=== PATIENT | male | born 1935 | race Caucasian/White ===

== ENCOUNTER → 2017-03-12 | Outpatient (CLI) | payer OTHER ==
[~2017-03-12] MED LIST: ACC10 PO; ACET-1256 PO; FINA5TAB PO; GATI0.5S OPR; LATA0.009 OPB; METO25TA56 PO; MULT-506 PO; PRED1SUS3 OPL; PRED1SUS3 OPR; PRLSR20 PO; WARF5TAB7 PO; WARF5TAB90 PO
[2017-03-12 12:27] LABS: AST/SGOT 20 U/L (15-37); BLOOD UREA NITROGEN 21 mg/dl (7-18); BUN/CREATININE RATIO 21.5 (10-20); CARBON DIOXIDE 28 mmol/L (21-32); CHLORIDE 107 mmol/L (98-107); CHOLESTEROL 162 mg/dl (0-200); CREATININE 0.97 mg/dl (0.60-1.40); GLUCOSE 97 mg/dl (70-99); POTASSIUM 3.8 mmol/L (3.5-5.1); SODIUM 142 mmol/L (136-145)
[2017-03-12 12:29] LABS: ESTIMATED AVERAGE GLUCOSE 120 mg/dl; HA1C FLAG Normal (Normal)
[2017-03-12 12:31] LABS: ALT/SGPT 21 U/L (12-78); CHOLESTEROL/HDL RATIO 3.4; FERRITIN 349.5 ng/ml (8.0-388.0); HDL CHOLESTEROL 48 mg/dl; LDL CHOLESTEROL CALCULATED 72 mg/dl; TRIGLYCERIDES 212 mg/dl (0-150); VERY LOW DENSITY LIPOPROT CALC 42 mg/dl
[2017-03-12 13:20] LABS: CALCIUM 8.9 mg/dl (8.5-10.1)
[2017-03-12 13:57] LABS: BASO % 0.4 %; BASO ABS # 0.02 K/uL (0-0.2); COMPLETE YES; EOS % 3.7 %; HEMATOCRIT 43.1 % (42-52); IG% 1.2 %; LYMPH % 23.6 %; LYMPH ABS # 1.15 K/uL (1.2-3.4); MEAN CELL VOLUME 90.9 fL (80-100); MEAN CORPUSCULAR HEMOGLOBIN 30.6 pg (25-34); MEAN CORPUSCULAR HGB CONC 33.6 g/dl (32-36); MEAN PLATELET VOLUME 10.8 fL (7.4-10.4); MONO % 11.5 %; NEUT % 59.6 %; PLATELET COUNT 122 K/uL (130-400); PLT ESTIMATE DECREASED; RED BLOOD COUNT 4.74 M/uL (4.7-6.1); WHITE BLOOD COUNT 4.87 K/uL (4.8-10.8)
== END | disposition home or self-care (01) ==
LOC: C.LAB1850 10:48
PROVIDERS: ATTEND Internal Medicine
DX: R73.9 Hyperglycemia, unspecified (principal); D69.6 Thrombocytopenia, unspecified; E78.5 Hyperlipidemia, unspecified

== ENCOUNTER → 2017-09-24 | Outpatient (CLI) | payer OTHER ==
[2017-09-24 09:27] LABS: BASO % 0.2 %; BASO ABS # 0.01 K/uL (0-0.2); COMPLETE YES; HEMATOCRIT 42.3 % (42-52); IG% 0.2 %; LYMPH % 26.2 %; LYMPH ABS # 1.25 K/uL (1.2-3.4); MEAN CELL VOLUME 92.2 fL (80-100); MEAN CORPUSCULAR HEMOGLOBIN 30.9 pg (25-34); MEAN CORPUSCULAR HGB CONC 33.6 g/dl (32-36); MEAN PLATELET VOLUME 10.7 fL (7.4-10.4); MONO % 12.4 %; PLATELET COUNT 104 K/uL (130-400); RED BLOOD COUNT 4.59 M/uL (4.7-6.1); WHITE BLOOD COUNT 4.77 K/uL (4.8-10.8)
[2017-09-24 09:55] LABS: ALT/SGPT 24 U/L (12-78); BLOOD UREA NITROGEN 24 mg/dl (7-18); BUN/CREATININE RATIO 21.2 (10-20); CALCIUM 8.7 mg/dl (8.5-10.1); CARBON DIOXIDE 27 mmol/L (21-32); CHLORIDE 107 mmol/L (98-107); CHOLESTEROL 66 mg/dl (0-200); CREATININE 1.15 mg/dl (0.60-1.40); GLUCOSE 98 mg/dl (70-99); POTASSIUM 3.7 mmol/L (3.5-5.1); SODIUM 141 mmol/L (136-145); TRIGLYCERIDES 94 mg/dl (0-150); VERY LOW DENSITY LIPOPROT CALC 19 mg/dl
[2017-09-24 10:05] LABS: AST/SGOT 21 U/L (15-37); CHOLESTEROL/HDL RATIO 1.3; HDL CHOLESTEROL 50 mg/dl
== END | disposition home or self-care (01) ==
LOC: C.LAB1850 08:31
PROVIDERS: ATTEND Internal Medicine
DX: E78.5 Hyperlipidemia, unspecified (principal); D69.6 Thrombocytopenia, unspecified; I51.7 Cardiomegaly

== ENCOUNTER → 2018-01-08 | Outpatient (CLI) | payer OTHER | END | disposition home or self-care (01) | LOC: C.PATHSPEC 17:20 | PROVIDERS: ATTEND Urology | DX: R36.9 Urethral discharge, unspecified (principal) ==

== ENCOUNTER → 2018-03-07 | Outpatient (CLI) | payer OTHER ==
[2018-03-07 09:54] LABS: HEMOGLOBIN A1C 5.8 % (4.5-5.6)
[2018-03-07 10:02] LABS: HEMATOCRIT 40.5 % (42-52); HEMOGLOBIN 13.7 g/dL (14.0-18.0); MEAN CELL VOLUME 89.6 fL (80-100); MEAN CORPUSCULAR HEMOGLOBIN 30.3 pg (25-34); MEAN CORPUSCULAR HGB CONC 33.8 g/dl (32-36); MEAN PLATELET VOLUME 9.5 fL (7.4-10.4); PLATELET COUNT 117 K/uL (130-400); RED CELL DISTRIBUTION WIDTH CV 15.9 % (11.5-14.5); RED CELL DISTRIBUTION WIDTH SD 51.8 fL (36.4-46.3); WHITE BLOOD COUNT 4.51 K/uL (4.8-10.8)
[2018-03-07 10:04] LABS: ALT/SGPT 21 U/L (12-78); AST/SGOT 20 U/L (15-37); BLOOD UREA NITROGEN 24 mg/dl (7-18); CALCIUM 8.3 mg/dl (8.5-10.1); CARBON DIOXIDE 26 mmol/L (21-32); CREATININE 1.07 mg/dl (0.60-1.40); GLUCOSE 91 mg/dl (70-99); POTASSIUM 3.8 mmol/L (3.5-5.1); SODIUM 143 mmol/L (136-145)
[2018-03-07 10:06] LABS: CHOLESTEROL 140 mg/dl (0-200); LDL CHOLESTEROL CALCULATED 76 mg/dl
== END | disposition home or self-care (01) ==
LOC: C.LAB1850 08:06
PROVIDERS: ATTEND Internal Medicine
DX: E78.5 Hyperlipidemia, unspecified (principal); R73.9 Hyperglycemia, unspecified; I48.2 Chronic atrial fibrillation

== ENCOUNTER 2021-07-01 09:06 | Observation (INO) ==
--- NOTE | 2021-05-27 14:30 | PAT Medication Instructions ---
Medication Instructions Date of Service May 27, 2021 Home Medications Medication Instructions Recorded quinapril 40 mg tablet 40 mg PO DAILY #90 tab 08/26/20 metoprolol succinate 25 mg 25 mg PO BID #180 tab 09/29/20 tablet,extended release 24 hr potassium chloride 10 mEq 10 meq PO DAILY #90 tab 10/18/20 tablet,extended release furosemide 20 mg tablet 20 mg PO DAILY #90 tab 11/23/20 apixaban 5 mg tablet 5 mg PO BID #60 tab 03/16/21 finasteride 5 mg tablet 5 mg PO DAILY #90 tab 04/05/21 omeprazole 20 mg capsule,delayed 20 mg PO DAILY #90 cap 04/18/21 release cholecalciferol (vitamin D3) 250 mcg (10,000 unit) tablet 10,000 units PO QAM latanoprost 0.005 % eye drops 1 drops OPB HS multivitamin 2 cap PO QAM quinapril 40 mg tablet 40 mg PO DAILY metoprolol succinate 25 mg tablet,extended release 24 hr 25 mg PO BID potassium chloride 10 mEq tablet,extended release 10 meq PO DAILY furosemide 20 mg tablet 20 mg PO DAILY apixaban 5 mg tablet 5 mg PO BID finasteride 5 mg tablet 5 mg PO DAILY omeprazole 20 mg capsule,delayed release 20 mg PO DAILY vit C 250 mg-vit E 90 mg-zinc 40 mg-copper 1 tl-ksdxgg-mehipk capsule (PreserVision AREDS-2) 1 tab PO BID ASK your prescriber and surgeon apixaban 5 mg tablet 5 mg PO BID (in order for spinal anesthesia, Apixaban needs to be stopped 72 hours/3 days before surgery. Please check if okay with doctor that prescribes this to you) STOP taking 2 weeks before surgery (or as soon as possible if surgery is within 2 weeks) vit C 250 mg-vit E 90 mg-zinc 40 mg-copper 1 ol-ccawbv-jckkef capsule (PreserVision AREDS-2) 1 tab PO BID DO NOT take the morning of surgery cholecalciferol (vitamin D3) 250 mcg (10,000 unit) tablet 10,000 units PO QAM multivitamin 2 cap PO QAM quinapril 40 mg tablet 40 mg PO DAILY potassium chloride 10 mEq tablet,extended release 10 meq PO DAILY furosemide 20 mg tablet 20 mg PO DAILY Take morning of surgery With a small sip of water, OTHERWISE NOTHING TO EAT OR DRINK AFTER MIDNIGHT: metoprolol succinate 25 mg tablet,extended release 24 hr 25 mg PO BID finasteride 5 mg tablet 5 mg PO DAILY omeprazole 20 mg capsule,delayed release 20 mg PO DAILY Take evening before surgery latanoprost 0.005 % eye drops 1 drops OPB HS metoprolol succinate 25 mg tablet,extended release 24 hr 25 mg PO BID Other Notes If you have any questions please call us at [phone] or [phone] or [phone] or [phone]
--- NOTE | 2021-05-31 14:21 | Anesthesiology Consultation ---
Date of Service May 31, 2021 Assessment & Plan (1) Encounter for pre-operative examination: - COVID screening: Per assessment on 05/31: Travel screen negative, no known COVID-19 positive contacts or current COVID-19 related symptoms. Patient vaccinated. Surgeon arranging preop COVID testing. Awaiting results. - Cardiology office visit (04/12/21): "At this time the patient is an acceptable cardiac risk to undergo his right knee total arthroplasty s scheduled to be performed May 31, 2021.. At this time continue current medications. If his blood pressure remains elevated despite control of his knee pain would then need to consider increasing his antihypertensive regimen. At this time continue current MARVIN-inhibitor and beta-matt dose.. Continue long-term anticoagulation therapy with apixaban. At the time of his surgery would recommend holding it for no more than 2 days prior to the day of surgery. (last dose day 3 prior to surgery. Hold day 2 and day 1 before surgery. Hold day of surgery. Resume 24 hours after surgery if okay from a bleeding and orthopedic standpoint.. Routine cardiology follow-up visit with me in 6 months." - Apixaban instructions: Per 04/12/21 office visit, cardiology does not recommend patient holding for longer than 2 days prior to DOS (per pt, d/t hx of DVT when off anticoagulation in the past). Moth Proofer made aware that in order for spinal anesthesia, Eliquis needs to be held 72 hours prior to surgery. He is in agreement with plan for spinal anesthesia and okay with patient holding 72 hours prior to surgery given this information. His office aware to contact patient to make him aware. Chart Review Chart Review: Acceptable Risk for Surgery and Patient seen in Pre Admission Testing Teaching & Discussion Pre-Anesthesia Teaching/Discussion Notes: Instructed NPO after midnight before surgery,except medications with 15 cc of water. Medication instructions provided according to the PAT guidelines. History Surgery Operation Date: 07/01/21 08:40 Proposed Procedures p Right Total Knee Arthroplasty - Randolph Burgos DO Height/Weight Height: 6 ft Weight: 96.3 kg Allergies Allergy/AdvReac Type Severity Reaction Status Date / Time codeine AdvReac Mild Nausea Verified 05/31/21 14:11 Medications Home Medications Medication Instructions Recorded Confirmed Last Taken cholecalciferol (vitamin D3) 250 10,000 units PO QAM #30 tab 07/15/19 05/31/21 Unknown mcg (10,000 unit) tablet latanoprost 0.005 % eye drops 1 drops OPB HS ml 07/15/19 05/31/21 Unknown multivitamin 2 cap PO QAM 07/15/19 05/31/21 Unknown quinapril 40 mg tablet 40 mg PO DAILY #90 tab 08/26/20 05/31/21 Unknown metoprolol succinate 25 mg 25 mg PO BID #180 tab 09/29/20 05/31/21 Unknown tablet,extended release 24 hr potassium chloride 10 mEq 10 meq PO DAILY #90 tab 10/18/20 05/31/21 Unknown tablet,extended release furosemide 20 mg tablet 20 mg PO DAILY #90 tab 11/23/20 05/31/21 Unknown apixaban 5 mg tablet 5 mg PO BID #60 tab 03/16/21 05/31/21 Unknown finasteride 5 mg tablet 5 mg PO DAILY #90 tab 04/05/21 05/31/21 Unknown omeprazole 20 mg capsule,delayed 20 mg PO DAILY #90 cap 04/18/21 05/31/21 Unkno wn release vit C 250 mg-vit E 90 mg-zinc 40 1 tab PO BID 05/24/21 05/31/21 Unknown mg-copper 1 zl-cxnxgz-tqnsqk capsule (PreserVision AREDS-2) Past Medical History Medical History Arthritis BPH with obstruction/lower urinary tract symptoms Congestive heart failure COPD (chronic obstructive pulmonary disease) Deep vein thrombosis Initial DVT (unknown etiology), subsequent DVT (3+ years ago) occurred while anticoagulation was on hold GERD (gastroesophageal reflux disease) Glaucoma Hearing deficit History of kidney stones Hx of skin cancer, basal cell Ear Hypertension Meningitis spinal Remote hx (childhood) Permanent atrial fibrillation Follows with Dr. Joseph Transient diplopia Exercise / Class Metabolic Activity III < 4 Walking/Shop/Light housework Past Family History Family History Father AAA (abdominal aortic aneurysm) Mother Congestive heart failure Myocardial infarction Hypertension Coronary arteriosclerosis Other No family history of adverse response to anesthesia Denies family history of Ovarian cancer Prostate cancer Breast cancer Colorectal cancer Past Surgical History Surgical History History of colonoscopy History of tooth extraction Past Anesthesia History No Hx of Anesthesia Complications and No Family Hx of Anesthesia Complications History of PONV No Hx of PONV Social History Smoking Status: Former smoker tobacco type: cigarettes Do You Dip or Chew Tobacco: No Smoking End Date: Quit 1984 Hx Alcohol Use: No Hx Substance Use: No substance use type: does not use Review of Systems Patient denies chest pain, shortness of breath, fever, chills, cough, wheezing, palpitations. Physical Exam Vital Signs VITALS BP P TEMP SP02 RESP PHYSICAL Full cervical extension range of motion. Full TMJ range of motion. TMD __ finger breaths Mallampati Score ___ Dentition: full upper/lower dentures Lungs: clear throughout to auscultation Cardiac: regular rate, irregular rhythm, no murmurs noted Spine: normal Carotid arteries: negative bruit Extremities: no edema Lab Results Anesthesia Preop Results Results Anesthesia Widget: WBC 4.79 K/uL (4.8-10.8) L 05/31/21 Hgb 13.7 g/dL (14.0-18.0) L 05/31/21 Hct 41.4 % (42-52) L 05/31/21 Plt 148 K/uL (130-400) 05/31/21 Na 136 mmol/L (136-145) 05/31/21 K 4.6 mmol/L (3.5-5.1) 05/31/21 Cl 107 mmol/L (98-107) 05/31/21 CO2 27 mmol/L (21-32) 05/31/21 BUN 24 mg/dl (7-18) H 05/31/21 Creat 1.27 mg/dl (0.6-1.4) 05/31/21 Glucose Level 117 mg/dl (70-99) H 05/31/21 PT 10.2 Seconds (9.0-12.0) 05/31/21 PTT 30.2 Seconds (21.0-31.0) 05/31/21 INR 1.0 (0.9-1.1) 05/31/21 Blood Type O Positive 05/31/21 Antibody Screen NEGATIVE 05/31/21 Testing Electrocardiogram Date: 05/31/21 A. fib with PVCs or aberrantly conducted complexes. Nonspecific ST abnormality. Unconfirmed report. Chest X-Ray Date: 05/31/21 FINDINGS: Lung volumes are normal. There is no pneumothorax or pleural effusion. There is no consolidation or evidence for pulmonary edema. Moderate cardiomegaly is again noted as well as a hiatal hernia. Mediastinal contours are stable. IMPRESSION: No acute cardiopulmonary findings. No change in appearance of the chest. Cardiomegaly. Hiatal hernia. Echocardiogram Date: 10/13/19 EF 40%. Mild to moderate global HK. Mild cLVH. Borderline mild biatrial dilatation. Borderline RVE. Trace to mild TR. RVSP 30-40mmhg.
--- NOTE | 2021-06-30 16:50 | History & Physical Report ---
Date of Service June 30, 2021 Assessment & Plan (1) Right knee DJD: We will proceed with a right total knee arthroplasty. Postoperatively he will be kept in the hospital for postoperative medical management. He will be started on Eliquis for DVT prophylaxis. He plans [facility] upon discharge. History of Present Illness Chief Complaint: Osteoarthritis of the right knee. Primary Care Provider: Saleem Azar MD Ron is a pleasant 86-year-old male whose been dealing with chronic worsening right knee pain. He has had bad valgus deformity and his knee keeps giving out on him. He is ambulating with a cane. He has a history of a right knee arthroscopy done in the . He does have a history of a right lower extr emity DVT and has been on Eliquis for that. After failing extensive conservative treatment, he has elected proceed with a right total knee arthroplasty.. Allergies Allergy/AdvReac Type Severity Reaction Status Date / Time codeine AdvReac Mild Nausea Verified 06/24/21 10:39 Home Medications Medication Instructions Recorded Confirmed Type cholecalciferol (vitamin D3) 250 10,000 units PO QAM #30 tab 07/15/19 06/24/21 History mcg (10,000 unit) tablet latanoprost 0.005 % eye drops 1 drops OPB HS ml 07/15/19 06/24/21 History multivitamin 2 cap PO QAM 07/15/19 06/24/21 History quinapril 40 mg tablet 40 mg PO DAILY #90 tab 08/26/20 06/24/21 Rx metoprolol succinate 25 mg 25 mg PO BID #180 tab 09/29/20 06/24/21 Rx tablet,extended release 24 hr potassium chloride 10 mEq 10 meq PO DAILY #90 tab 10/18/20 06/24/21 Rx tablet,extended release furosemide 20 mg tablet 20 mg PO DAILY #90 tab 11/23/20 06/24/21 Rx apixaban 5 mg tablet 5 mg PO BID #60 tab 03/16/21 06/24/21 Rx finasteride 5 mg tablet 5 mg PO DAILY #90 tab 04/05/21 06/24/21 Rx omeprazole 20 mg capsule,delayed 20 mg PO DAILY #90 cap 04/18/21 06/24/21 Rx release vit C 250 mg-vit E 90 mg-zinc 40 1 tab PO BID 05/24/21 06/24/21 History mg-copper 1 br-zgeoto-rphxin capsule (PreserVision AREDS-2) Past Med/Surg History Medical History Arthritis BPH with obstruction/lower urinary tract symptoms Congestive heart failure COPD (chronic obstructive pulmonary disease) Deep vein thrombosis Initial DVT (unknown etiology), subsequent DVT (3+ years ago) occurred while anticoagulation was on hold GERD (gastroesophageal reflux disease) Glaucoma Hearing deficit History of kidney stones Hx of skin cancer, basal cell Ear Hypertension Meningitis spinal Remote hx (childhood) Permanent atrial fibrillation Follows with Dr. Joseph Transient diplopia Surgical History History of colonoscopy History of tooth extraction Family History Father AAA (abdominal aortic aneurysm) Mother Congestive heart failure Myocardial infarction Hypertension Coronary arteriosclerosis Other No family history of adverse response to anesthesia Denies family history of Ovarian cancer Prostate cancer Breast cancer Colorectal cancer Social History Smoking Status: Former smoker Second Hand Exposure: No; Hx Alcohol Use: No Hx Substance Use: No Preferred Language: Comoran Visual Impairment: No Limitations Hearing Ability: Normal Bilingual Teacher Aide Required: No Beliefs That Will Affect Care: None marital status: / Current Living Situation: Alone current occupational status: retired Feels Safe at Home: Yes Dental Care, Regularly: No Physical Activity Frequency: 1-2 Times per Week Physical Activity Frequency Comment: gym Seatbelt Use: always Sunscreen Use: No Assistive Devices: Cane, Denture - Upper, Denture - Lower, Glasses and Hearing Aid - Bilateral Review of Systems All systems reviewed & are unremarkable except as noted in HPI & below. Physical Exam On physical examination of the right knee, he does have a significant valgus deformity. He is tenderness palpation of the distal lateral femoral condyle and over the lateral joint line. Constitutional WD/WN, vitals as above Eyes PERRL, conjunctivae normal, anicteric sclerae ENMT external ear and nose normal, oropharynx normal Neck trachea midline, no thyromegaly Respiratory normal respiratory effort Cardiovascular RRR, no murmur, no edema Gastrointestinal (Abdomen) normal bowel sounds, soft, nontender, no hepatosplenomegaly Psychiatric A+Ox3, euthymic affect Results & Data Results & Data Laboratory Results . Diagnostic Findings X-rays of the right knee do show advanced osteoarthritis with joint space narrowing, osteophyte formation, and [id number] articulation. PG Care Time/CCT Total # of Minutes Spent Total Time Spent with Patient: Total time spent is greater than 50% in coordination of care (as documented) at patient's floor/unit and/or counseling patient: Coding Level of Care Code None Diagnoses Right knee DJD M17.11
[~2021-07-01 09:06] MED LIST changes: -ACC10 PO; -ACET-1256 PO; +ACETAMINOPHEN 500 MG TAB PO SCH; +BUPIVACAINE 0.5 % 5 MG/1 ML PF 10ML VIAL ONE; +FAMOTIDINE 20 MG TAB PO SCH; -FINA5TAB PO; +GABAPENTIN 300 MG CAP PO SCH; -GATI0.5S OPR; -LATA0.009 OPB; +LR 500ML BOLUS, THEN 15ML/HR IV SCH; +LR 60ML/HR IV SCH; -METO25TA56 PO; -MULT-506 PO; -PRED1SUS3 OPL; -PRED1SUS3 OPR; -PRLSR20 PO; +ROPIVACAINE 0.5% 5 MG/ML 30 ML VIAL ONE; +ROPIVACAINE 0.5% HCL/PF 150 MG, BUPIVACAINE 0.75% MPF 20 ML, EPINEPHrine 30MG/30ML (OR ... INSTIL SCH; +TRANEXAMIC ACID 1,000 MG **IV Intra-op IV SCH; +TRANEXAMIC ACID 1,000 MG **IV Pre-op IV SCH; -WARF5TAB7 PO; -WARF5TAB90 PO; +ceFAZolin 2000MG 2,000 MG/15 ML SYR IV SCH; +dexAMETHasone 4 MG TAB PO SCH
--- NOTE | 2021-07-01 10:27 | History & Physical Bridge Note ---
Date of Service July 01, 2021 History & Physical Bridge Note I have examined the patient, reviewed the History & Physical and in the interval since the performance of the History & Physical I have noted the following changes of clinical significance: no changes noted
[2021-07-01] MEDS ORDERED: ORTHO JOINT ANESTHETIC ONE (11:46)
[2021-07-01] MEDS ORDERED: ONDANSETRON INJ 2 MG/ML 2 ML VIAL IV PRN ×2 (11:58→15:26)
[2021-07-01] MEDS ORDERED: fentaNYL citrate 100 MCG/2 ML VIAL IV PRN (11:58)
[2021-07-01] MEDS ORDERED: ATROPINE SULFATE 0.1 MG/ML 10ML SYR IV PRN (11:58)
[2021-07-01] MEDS ORDERED: ePHEDrine sulfate 50 MG/ML AMP IV PRN (11:58)
[2021-07-01] MEDS ORDERED: ACETAMINOPHEN 1000 MG/100 ML IV IV ONE (13:29)
--- NOTE | 2021-07-01 13:54 | Operative Report ---
PG Post Operative Report Pre & Post Diagnosis Operation Date: 07/01/21 11:30 Pre-Op Diagnosis: Right Knee Degenerative Joint Disease Post-Op Diagnosis: Right Knee Degenerative Joint Disease I identified the patient and participated in the time-out.: Yes Procedure Operation Date: 07/01/21 11:30 Actual Procedures p Right Total Knee Arthroplasty(Right) - Randolph Burgos DO Surgeon Randolph Burgos DO Call Center Manager Randolph Moeller PAC Estimated Blood Loss 10 Findings Consistent with Post-Op Diagnosis Specimens Right femoral and tibial bone Complications none Disposition Disposition: Recovery Room Indications Ron is a pleasant 86-year-old male who is been dealing with chronic worsening right knee pain. He developed a bad valgus deformity and has been falling because of his knee instability. X-rays were diagnostic for advanced osteoarthritis. After failing conservative treatment, he has elected proceed with a right total knee arthroplasty. Description of Procedure Implants used: I used a Zayda Persona total knee arthroplasty system with a size 12 standard femur, G tibia with a 30 mm stem extension, 35 patella, and a size 10 CPS polyethylene bearing. All components were cemented in place with Biomet cement. Ron arrived [facility] for the above procedure. He was seen in the preoperative holding area and the operative extremity was identified and signed. He was given a preoperative antibiotic, TXA, a spinal anesthetic and an adductor nerve block. He was taken back to the operating room and laid on the table in supine position. He was given basic sedation. The operative knee was then prepped and draped in sterile fashion. A timeout was done, and the patient and the operative extremity was properly identified. A midline incision was made directly over the patella. Dissection was taken down to the extensor mechanism. A subvastus arthrotomy was used. The medial retinaculum was released and the fat pad was mostly excised. The knee was flexed and the ACL, PCL, and meniscus were removed. A drill was sent down the center of the femoral canal followed by an intramedullary stewart. Off that stewart a distal femoral cutting block was placed. 9 mm was resected off the distal femur at 5 of valgus. A posterior referencing AP sizing guide was then placed on the distal femur. The femur measured to be a size 12. 2 drill holes were placed in 3 of external rotation. A 4-in-1 cutting block was then impacted into place. Anterior, posterior, and chamfer cuts were then made. The proximal tibia was then exposed. An external tibial alignment guide was placed. A tibial cut guide was then anchored in place and the proximal tibia was then resected. The posterior aspect of the knee was then opened up and any additional meniscus fragments and osteophytes were removed. The tibia measured to be a size G. The tibial plate was then placed in the appropriate rotation and the tibia was drilled and punched. Trial components were then placed. I used a size 10 CPS polyethylene insert. The knee was brought through a full range of motion and felt to be stable. The peg holes for the femoral component were then drilled. The patella was then everted and 9 mm was resected off the posterior aspect of the patella. The patella measured to be a size 35. 3 peg holes were then drilled. A trial patella was placed. The knee was once again brought through a full range of motion and felt to be stable. Trial components were then removed. The surrounding soft tissues were injected with 100 cc of an orthopedic pain control cocktail. All components were then cemented into place with Biomet cement. The final polyethylene insert was then snapped into place. Once cement was dry the tourniquet was deflated. Hemostasis was obtained. A dilute betadyne lavage was then done for 3 minutes. The joint was then irrigated with normal saline solution. The subvastus arthrotomy was then closed with #1 Vicryl suture. The skin was closed with 2-0 Vicryl, 3-0V lock suture, and ramandeep. A soft compressive dressing was placed. He was then transferred to a hospital bed and taken to the postanesthesia care unit in stable condition. He tolerated the procedure well. Randolph Moeller PA-C, was present for the entire procedure. He was critical for patient positioning, prepping, draping, retraction exposure, wound closure and application of sterile dressing. I attest to the content of the Intraoperative Record and any orders documented therein. Any exceptions are noted below.
--- NOTE | 2021-07-01 14:49 | Anesthesiology Progress Note ---
Date of Service July 01, 2021 Anesthesia Post Procedure Vital Signs Vital Signs: Temp Pulse Pulse Resp BP Pulse Ox 07/01/21 14:45 75 17 148/93 H 97 07/01/21 14:35 82 12 154/92 H 100 07/01/21 14:25 76 16 147/101 H 96 07/01/21 14:18 97.7 F 80 14 155/105 H 95 07/01/21 11:03 66 20 172/95 H 97 07/01/21 09:36 97.7 F 68 20 159/113 H 98 Transfer of Care Handoff Completed per policy Notes Mental Status: alert / awake / arousable and participated in evaluation Patient Amnestic to Procedure: Yes Nausea / Vomiting: adequately controlled Pain: adequately controlled Airway Patency, RR, SpO2: stable & adequate BP & HR: stable & adequate Hydration State: stable & adequate Anesthetic Complications: no major complications apparent and Pt Satisfied with anesthetic care
--- NOTE | 2021-07-01 14:50 | XRay Report ---
XR knee RT 1 or 2V routine CLINICAL HISTORY: Surgical Post Op COMPARISON: January 31, 2021 DISCUSSION: Interval placement of a prosthetic right knee joint which is in expected position. Subcutaneous emphy sema and skin ramandeep are seen. Heavy vascular calcifications are seen. IMPRESSION: Postoperative changes as detailed above. Atherosclerosis. ACT 112: Negative or not required by law. The above report was generated using voice recognition software. It may contain grammatical, syntax o r spelling errors. Electronically signed by: Lupis Elkins DO 07/01/2021 2:49 PM
[2021-07-01] MEDS ORDERED: MAGNESIUM HYDROXIDE SUSP 30 ML UDC PO PRN (15:26)
[2021-07-01] MEDS ORDERED: bisacodyL 10 MG SUPP PR PRN (15:26)
[2021-07-01] MEDS ORDERED: NALOXONE HCL 0.4 MG/1 ML VIAL/CARP IV PRN (15:26)
[2021-07-01] MEDS ORDERED: HYDROmorphone INJ 0.5 MG/0.5 ML SYR IV PRN (15:26)
[2021-07-01] MEDS ORDERED: METOCLOPRAMIDE HCL INJ 5 MG/ML 2 ML VIAL IV PRN (15:26)
[2021-07-01] MEDS: SODIUM CHLORIDE 0.9% 1000ML 1,000 ML IV SCH (16:23)
[2021-07-01] MEDS: KETOROLAC TROMETHAMINE 15 MG/ML VIAL IV SCH ×2 (17:26→23:48)
[2021-07-01] MEDS: ceFAZolin 2000MG 2,000 MG/15 ML SYR IV SCH (20:16)
[2021-07-01] MEDS: METOPROLOL SUCC 25MG EXT REL TAB PO SCH (20:17)
[2021-07-01] MEDS: LATANOPROST 0.005% OP SOLN 2.5 ML BTL OPB SCH (20:17)
[2021-07-01] MEDS: DOCUSATE SODIUM 100 MG CAP PO SCH (20:18)
[2021-07-01] MEDS: SENNA 8.6 MG TAB PO SCH (20:18)
[2021-07-01] MEDS: ACETAMINOPHEN 500 MG TAB PO SCH (22:16)
[2021-07-02] MEDS: SODIUM CHLORIDE 0.9% 1000ML 1,000 ML IV SCH (02:04)
[2021-07-02] MEDS: ceFAZolin 2000MG 2,000 MG/15 ML SYR IV SCH (04:40)
[2021-07-02] MEDS: ACETAMINOPHEN 500 MG TAB PO SCH ×3 (05:08→22:53)
[2021-07-02] MEDS: KETOROLAC TROMETHAMINE 15 MG/ML VIAL IV SCH ×4 (05:08→22:54)
--- NOTE | 2021-07-02 07:51 | Orthopedic Progress Note ---
Date of Service July 02, 2021 Assessment & Plan (1) Status post right knee replacement: Overall he is doing very well. Is not any much pain in the right knee. He will be seen by physical therapy today for ambulation and range of motion exercises. He is on Eliquis for DVT prophylaxis. He does live alone and he was hoping to go to a rehab facility. Case management will work with back today. The bed becomes available today he is orthopedically stable for discharge. Sara Velasquez was seen and examined at bedside this morning. Overall is doing very well. Is not any much pain in the right knee. He has been ambulating to the [employer] athroom. He has no complaints.. Review of Systems All systems reviewed & are unremarkable except as noted in HPI & below. Physical Exam On physical examination the right knee, the dressing is clean and dry. He is active dorsiflexion plantarflexion of his right ankle.. Results & Data Results & Data Laboratory Results . Diagnostic Findings Postoperative x-rays of the right knee show the prosthesis to be in anatomic alignment without any evidence of fracture, dislocation, or loosening. PG Care Time/CCT Total # of Minutes Spent Total Time Spent with Patient: Total time spent is greater than 50% in coordination of care (as documented) at patient's floor/unit and/or counseling patient: Coding Level of Care Code 75980 Post Operative Follow-Up Diagnoses Status post right knee replacement Z96.651
[2021-07-02] MEDS ORDERED: dexAMETHasone 4 MG TAB PO SCH (08:00)
[2021-07-02] MEDS: DOCUSATE SODIUM 100 MG CAP PO SCH ×2 (09:09→20:00)
[2021-07-02] MEDS: MULTIVITAMIN TAB PO SCH (09:09)
[2021-07-02] MEDS: ENALAPRIL MALEATE 10 MG TAB PO SCH (09:09)
[2021-07-02] MEDS: FUROSEMIDE 20 MG TAB PO SCH (09:09)
[2021-07-02] MEDS: APIXABAN 5 MG TABLET PO SCH ×2 (09:09→19:59)
[2021-07-02] MEDS: METOPROLOL SUCC 25MG EXT REL TAB PO SCH ×2 (09:10→20:00)
[2021-07-02] MEDS: POTASSIUM CHLORIDE 10 MEQ TABCR PO SCH (09:10)
[2021-07-02] MEDS: FINASTERIDE 5 MG TAB PO SCH (09:10)
[2021-07-02] MEDS: LATANOPROST 0.005% OP SOLN 2.5 ML BTL OPB SCH (20:00)
[2021-07-02] MEDS: SENNA 8.6 MG TAB PO SCH (20:00)
[2021-07-03] MEDS: KETOROLAC TROMETHAMINE 15 MG/ML VIAL IV SCH ×2 (05:01→11:46)
[2021-07-03] MEDS: ACETAMINOPHEN 500 MG TAB PO SCH ×3 (05:02→20:34)
--- NOTE | 2021-07-03 08:12 | Orthopedic Progress Note ---
Date of Service July 03, 2021 Assessment & Plan (1) Status post right knee replacement: Overall is doing fairly well. Is not having too much pain in the right knee. I asked him if you would like to go home sooner with home health and he did not seem to want to do that. He seems more comfortable going to a rehab facility. I think that is reasonable given his age and the fact that he lives alone. Unfortunately we will have to wait till Sunday for insurance authorization. Right now he will stay in the hospital for therapy and pain control. He is on Eliquis for DVT prophylaxis. Sara Velasquez was seen and examined at bedside this morning. Overall is doing very well. Is not having much pain in the right knee. Has been working well with physical therapy. He has no complaints.. Review of Systems All systems reviewed & are unremarkable except as noted in HPI & below. Physical Exam On physical examination of the right knee, dressing is clean and dry. He has active dorsiflexion plantarflexion of the right ankle. Sensation is intact throughout.. Results & Data Results & Data Laboratory Results . Diagnostic Findings . PG Care Time/CCT Total # of Minutes Spent Total Time Spent with Patient: Total time spent is greater than 50% in coordination of care (as documented) at patient's floor/unit and/or counseling patient: Coding Level of Care Code 94972 Post Operative Follow-Up Diagnoses Status post right knee replacement Z96.651
[2021-07-03] MEDS: DOCUSATE SODIUM 100 MG CAP PO SCH ×2 (08:44→20:33)
[2021-07-03] MEDS: ENALAPRIL MALEATE 10 MG TAB PO SCH (08:45)
[2021-07-03] MEDS: APIXABAN 5 MG TABLET PO SCH ×2 (08:45→20:33)
[2021-07-03] MEDS: FINASTERIDE 5 MG TAB PO SCH (08:46)
[2021-07-03] MEDS: METOPROLOL SUCC 25MG EXT REL TAB PO SCH ×2 (08:46→20:33)
[2021-07-03] MEDS: MULTIVITAMIN TAB PO SCH (08:46)
[2021-07-03] MEDS: FUROSEMIDE 20 MG TAB PO SCH (08:46)
[2021-07-03] MEDS: POTASSIUM CHLORIDE 10 MEQ TABCR PO SCH (08:47)
[2021-07-03] MEDS: PANTOprazole 40 MG TAB PO SCH (09:30)
[2021-07-03] MEDS: LATANOPROST 0.005% OP SOLN 2.5 ML BTL OPB SCH (20:32)
[2021-07-03] MEDS: oxyCODONE HCL IR 5 MG TAB (IMMEDIATE RELEASE) PO PRN (20:34)
[2021-07-03] MEDS: SENNA 8.6 MG TAB PO SCH (20:34)
[2021-07-04] MEDS: ACETAMINOPHEN 500 MG TAB PO SCH ×3 (05:43→20:12)
--- NOTE | 2021-07-04 06:51 | Orthopedic Progress Note ---
Date of Service July 04, 2021 Assessment & Plan (1) Status post right knee replacement: Overall is doing well. Is not having much pain in the right knee. He is working well with physical therapy. He is on Eliquis for DVT prophylaxis. He can be discharged to rehab tomorrow when a bed becomes available. He will follow-up with orthopedics in 2 weeks. Sara Velasquez was seen and examined at bedside this morning. Overall is doing very well. He is not having much pain in the right knee. He has been working with physical therapy. He has no complaints.. Review of Systems All systems reviewed & are unremarkable except as noted in HPI & below. Physical Exam On physical examination of the right knee, the dressing has been changed. The incision is clean and dry. He has active dorsiflexion plantarflexion of his right ankle.. Results & Data Results & Data Laboratory Results . Diagnostic Findings . PG Care Time/CCT Total # of Minutes Spent Total Time Spent with Patient: Total time spent is greater than 50% in coordination of care (as documented) at patient's floor/unit and/or counseling patient: Coding Level of Care Code 43876 Post Operative Follow-Up Diagnoses Status post right knee replacement Z96.651
[2021-07-04] MEDS: FUROSEMIDE 20 MG TAB PO SCH (09:15)
[2021-07-04] MEDS: APIXABAN 5 MG TABLET PO SCH ×2 (09:16→20:09)
[2021-07-04] MEDS: FINASTERIDE 5 MG TAB PO SCH (09:16)
[2021-07-04] MEDS: PANTOprazole 40 MG TAB PO SCH (09:16)
[2021-07-04] MEDS: DOCUSATE SODIUM 100 MG CAP PO SCH ×2 (09:16→20:11)
[2021-07-04] MEDS: METOPROLOL SUCC 25MG EXT REL TAB PO SCH ×2 (09:16→20:11)
[2021-07-04] MEDS: MULTIVITAMIN TAB PO SCH (09:17)
[2021-07-04] MEDS: ENALAPRIL MALEATE 10 MG TAB PO SCH (09:17)
[2021-07-04] MEDS: POTASSIUM CHLORIDE 10 MEQ TABCR PO SCH (09:17)
[2021-07-04] MEDS: SENNA 8.6 MG TAB PO SCH (20:10)
[2021-07-04] MEDS: LATANOPROST 0.005% OP SOLN 2.5 ML BTL OPB SCH (20:11)
[2021-07-05] MEDS: oxyCODONE HCL IR 5 MG TAB (IMMEDIATE RELEASE) PO PRN ×3 (01:32→21:35)
[2021-07-05] MEDS: ACETAMINOPHEN 500 MG TAB PO SCH ×3 (06:27→21:05)
[2021-07-05] MEDS: FINASTERIDE 5 MG TAB PO SCH (08:17)
[2021-07-05] MEDS: PANTOprazole 40 MG TAB PO SCH (08:18)
[2021-07-05] MEDS: MULTIVITAMIN TAB PO SCH (08:18)
[2021-07-05] MEDS: DOCUSATE SODIUM 100 MG CAP PO SCH ×2 (08:18→21:04)
[2021-07-05] MEDS: METOPROLOL SUCC 25MG EXT REL TAB PO SCH ×2 (08:18→21:04)
[2021-07-05] MEDS: POTASSIUM CHLORIDE 10 MEQ TABCR PO SCH (08:19)
[2021-07-05] MEDS: ENALAPRIL MALEATE 10 MG TAB PO SCH (08:19)
[2021-07-05] MEDS: APIXABAN 5 MG TABLET PO SCH ×2 (08:19→21:03)
[2021-07-05] MEDS: FUROSEMIDE 20 MG TAB PO SCH (08:19)
[2021-07-05] MEDS: SENNA 8.6 MG TAB PO SCH (21:04)
[2021-07-05] MEDS: LATANOPROST 0.005% OP SOLN 2.5 ML BTL OPB SCH (21:04)
[2021-07-06] MEDS: ACETAMINOPHEN 500 MG TAB PO SCH (05:54)
[2021-07-06 07:21] VITALS: TEMP 97.9; O2SAT 93
--- NOTE | 2021-07-06 07:41 | Orthopedic Progress Note ---
Date of Service July 06, 2021 Assessment & Plan (1) Status post right knee replacement: Overall is doing well. Is not having much pain in the right knee. He is on Eliquis for DVT prophylaxis. He will be seen by physical therapy again today for ambulation and range of motion exercises. We are hoping to discharge him to a rehab facility later today. He can follow-up with orthopedics in 2 weeks. Subjective Patient was seen and examined at bedside this morning. Overall is doing fairly well. Is not any much pain in the right knee. Has been working well with physical therapy. He has no complaints.. Review of Systems All systems reviewed & are unremarkable except as noted in HPI & below. Physical Exam On physical examination the right knee, the dressing is clean and dry. His leg is out in full extension. He is active dorsiflexion and plantarflexion of the right ankle. Sensation is intact throughout.. Results & Data Results & Data Laboratory Results . Diagnostic Findings . PG Care Time/CCT Total # of Minutes Spent Total Time Spent with Patient: Total time spent is greater than 50% in coordination of care (as documented) at patient's floor/unit and/or counseling patient: Coding Level of Care Code 43161 Post Operative Follow-Up Diagnoses Status post right knee replacement Z96.651
[2021-07-06] MEDS: DOCUSATE SODIUM 100 MG CAP PO SCH (07:43)
[2021-07-06] MEDS: FINASTERIDE 5 MG TAB PO SCH (07:43)
[2021-07-06] MEDS: ENALAPRIL MALEATE 10 MG TAB PO SCH (07:43)
[2021-07-06] MEDS: FUROSEMIDE 20 MG TAB PO SCH (07:43)
[2021-07-06] MEDS: POTASSIUM CHLORIDE 10 MEQ TABCR PO SCH (07:44)
[2021-07-06] MEDS: METOPROLOL SUCC 25MG EXT REL TAB PO SCH (07:44)
[2021-07-06] MEDS: MULTIVITAMIN TAB PO SCH (07:44)
[2021-07-06] MEDS: APIXABAN 5 MG TABLET PO SCH (07:44)
[2021-07-06] MEDS: PANTOprazole 40 MG TAB PO SCH (07:44)
[2021-07-06] MEDS: oxyCODONE HCL IR 5 MG TAB (IMMEDIATE RELEASE) PO PRN (07:44)
[2021-07-06 12:56] VITALS: BP 124/75; PULSE 98
--- NOTE | 2021-07-09 07:24 | Discharge Summary ---
Date of Service July 09, 2021 Admission HPI (Per Admitting) Ron is a pleasant 86-year-old male whose been dealing with chronic worsening right knee pain. He has had bad valgus deformity and his knee keeps giving out on him. He is ambulating with a cane. He has a history of a right knee arthroscopy done in the . 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 After failing extensive conservative treatment, he has elected proceed with a right total knee arthroplasty.. Admission Exam (Per Admitting) On physical examination of the right knee, he does have a significant valgus deformity. He is tenderness palpation of the distal lateral femoral condyle and over the lateral joint line. Principal Diagnosis Same as "Discharge Diagnosis" noted below under Discharge Instructions. Discharge Exam On physical examination the right knee, the dressing is clean and dry. His leg is out in full extension. He is active dorsiflexion and plantarflexion of the right ankle. Sensation is intact throughout.. Discharge Data Procedures Performed Operation Date: 07/01/21 11:30 Actual Procedures p Right Total Knee Arthroplasty(Right) - Randolph Burgos DO Ordered Studies 07/01/21 05:00 US - OR guided needle placemen Routine Hospital Course (1) Status post right knee replacement: On July 01, 2021 Ron arrived at [facility] and underwent a right knee replaced without complication. He had a spinal anesthetic. Postoperatively he was started on aspirin for DVT prophylaxis and transferred to the general orthopedic floors. Overall, his hospital course was uneventful. On postop day #1 his vital signs were stable and his pain was well controlled. He was able to participate well with physical therapy. He is 86 years old and lives alone in an apartment. He was hoping to go to a rehab facility. While we are awaiting insurance authorization he was receiving physical therapy at the hospital and receiving pain medications help keep his pain controlled. He continued to progress well with physical therapy and he was doing well with regards to his pain. Unfortunately, he insurance denied acceptance to the rehab facility. He was doing well enough with physical therapy that by postop day #6 he felt safe returning to home with home health. He was then discharged home and will follow up with orthopedics in 2 weeks. PG Care Time/CCT Total # of Minutes Spent Total Time Spent with Patient: Total time spent is greater than 50% in coordination of care (as documented) at patient's floor/unit and/or counseling patient: Discharge Plan Discharge Items Patient Disposition: Home - Home Health Services Reason For Visit: DJD Knee Right Discharge Diagnosis: Right knee replacement Activity: As commented below Non-emergency contact: Surgeon Call non-emergency contact if: your wound has increased redness and your wound has increased drainage Follow-up/Referrals: ProSaleem MD [Primary Care Provider] - Diet: Regular Addtl Attending Provider Instructions: Activity and Therapy Recommendations: * If you are using [facility] then therapy will be provided at your home until they feel you have accomplished all of your goals. * If you are using [facility] then Physical Therapy will be provided until they feel you are ready to start Outpatient Physical Therapy. * If you are not using home therapy then Outpatient Physical Therapy should start about 3-5 days from your day of surgery. Therapy will last about 6-10 weeks * It is important not to put a pillow under your knee when you are relaxing or sleeping. It is just as important to make sure you are getting your knee perfectly straight as it is to regain your knee bend. * You were shown a series of exercises in the hospital. Do these exercises three times each day including the exercises you were shown in physical therapy. * Get up and walk several times each day. For the first four weeks, try not to stand or walk for more than one hour at a time. If you do stand or walk for more than one hour, you will not hurt anything, but your leg will likely swell. * As you feel comfortable, you may change from the walker or crutches to a cane and then to independent walking. Medications: * Narcotic You will likely be sent home from the hospital with a prescription for the narcotic pain medication that worked best throughout your stay. * Aspirin Most patients will be required to take Aspirin 81mg twice a day for 6 weeks after surgery. This is obtained [id number] and a prescription is not necessary. * Other medications may be prescribed for specific circumstances. If you have any questions, please call the office at . * Resume previous home medications unless otherwise instructed TEDs/Elastic Stockings: The white elastic stockings help limit swelling and prevent blood clots from forming in your legs.~ The more you wear them, the more they work. Wear them for six weeks. Dressing Care: The dressing can be changed after physical therapy on postop day #1. Daily dry dressing changes for a few days, especially if the incision is still draining some. If the incision is not draining then you may leave the ramandeep open to air. If there is a little bit of drainage or if the ramandeep are getting stuck on your clothing then cover the incision with a dry dressing. The ramandeep will be removed at your 2 week follow-up appointment. Showering: You may shower 5 days from the day of surgery as long as the incision is no longer draining. You may shower with the ramandeep exposed. Let soapy water run over the ramandeep and pat them dry. Do not scrub or soak the incision. Things To Watch For: * Drainage from the incision site that occurs more than one week after your surgery. * Increased redness at the incision site. * Fever above 102 degrees Fahrenheit. * Unusual chest pain or shortness of breath. * Call [facility] at with any of the above problems Follow-Up Visit: Follow-up with Dr. Burgos's PA (Randolph Moeller) 2-3 weeks after your day of surgery. He will remove your ramandeep and answer any questions. If you have any additional questions or concerns, Dr Burgos is usually in the office at the same time and will be available An appointment was probably scheduled when you signed-up for surgery in the office. If you have any questions call Office Instructions: More detailed instructions as well as Frequently Asked Questions were provided in a folder by our office when you signed-up for surgery. Please review these instructions when you get home. If you have any further questions or concerns, please feel free to call the office at [phone] Pending Studies at Discharge: No Stand-Alone Forms: My [facility] [employer], Smoking Cessation Medications and DC Order Prescriptions: New oxycodone 5 mg Tablet 5 mg PO Q4H PRN (Reason: pain) Qty: 30 RF: 0 Continued quinapril 40 mg tablet 40 mg PO DAILY Qty: 90 RF: 3 metoprolol succinate 25 mg tablet extended release 24 hr 25 mg PO BID Qty: 180 RF: 3 potassium chloride 10 mEq tablet extended release 10 meq PO DAILY Qty: 90 RF: 3 furosemide 20 mg tablet 20 mg PO DAILY Qty: 90 RF: 3 apixaban 5 mg tablet 5 mg PO BID Qty: 60 RF: 11 omeprazole 20 mg capsule,delayed release(DR/EC) 20 mg PO DAILY Qty: 90 RF: 3 finasteride 5 mg tablet 5 mg PO DAILY Qty: 90 RF: 3 latanoprost 0.005 % drops 1 drops OPB HS RF: 0 multivitamin capsule 2 cap PO QAM RF: 0 cholecalciferol (vitamin D3) 10,000 unit tablet 10,000 units PO QAM Qty: 30 RF: 0 PreserVision AREDS-2 250-90-40-1 mg Capsule 1 tab PO BID RF: 0 Discharge Orders: Discharge Order (Routine); Ordered 07/02/21 Ordered By: Randolph Champion/Other Patient Handouts: DVT Post Op Prevention Admission Data Admit Date/Time: 07/01/21 14:21 Attending Provider: Randolph Burgos Admit Provider: Randolph Burgos Primary Care Provider: Saleem Azar Other Providers: [facility] ; [place] ; [facility] Other Interventions: Discharge Summary Assessment (RN) Last Done: 07/06/21 12:55
== END 2021-07-06 14:37 | disposition home health service (06) ==
LOC: 3E 09:06 → ASU 09:06